=== PATIENT | male | born 1945 | race Caucasian/White ===

== ENCOUNTER 2016-11-03 11:39 | Emergency (ER) | END 2016-11-03 12:38 | disposition home or self-care (01) | DX: J02.9 Acute pharyngitis, unspecified (principal) ==

== ENCOUNTER 2016-11-14 21:17 | Emergency (ER) | payer BC ==
[~2016-11-14] VITALS: Ht 170.2 cm; Wt 85.0 kg
[~2016-11-14 21:17] MED LIST: ACET500C5 PO; AMO500 PO
[2016-11-14 21:23] VITALS: Ht 170.2 cm; Wt 85.0 kg
[2016-11-14] MEDS ORDERED: KETOROLAC 15 MG INJ IM STA (21:59)
--- NOTE | 2016-11-14 21:59 | ERD ---
ER Documentation Chief Complaint Date/Time DATE: 11/14/16 TIME: 21:57 Chief Complaint c/o rectal pain and bleeding d/t hemorrhoids. No relief with cream. HPI This pleasant 71-year-old male patient presents to emergency department today for treatment of hemorrhoid pain , patient reports pain with walking and sitting , pt reports symptoms x 5 days and has tried Prep H, and Motrin with little relief of symptoms. Patient reports that he has seen blood on the toilet paper with wiping after bowel movements. Patient has past medical history of hemorrhoids last treated a year ago. Patient denies constipation abdominal pain. ROS All systems reviewed and are negative except as per history of present illness. Medications Home Meds Active Scripts Acetaminophen* (Tylophen*) 500 Mg Capsule, 1 CAP PO Q6H Y for PAIN AND OR ELEVATED TEMP, #15 CAP Prov:JEISON DE LOS SANTOS MD 11/03/16 Amoxicillin* (Amoxicillin*) 500 Mg Cap, 500 MG PO TID for 10 Days, CAP Prov:JEISON DE LOS SANTOS MD 11/03/16 Allergies Allergies: Coded Allergies: No Known Allergy (Unverified , 11/14/16) PMhx/Soc Medical and Surgical Hx: pt denies Medical Hx, pt denies Surgical Hx History of Surgery: No Anesthesia Reaction: No Hx Neurological Disorder: No Hx Respiratory Disorders: No Hx Cardiac Disorders: No Hx Psychiatric Problems: No Hx Miscellaneous Medical Probl: No Hx Alcohol Use: No Hx Substance Use: No Hx Tobacco Use: No Smoking Status: Never smoker Physical Exam Vitals Vital Signs Date Time Temp Pulse Resp B/P Pulse Ox O2 Delivery O2 Flow Rate FiO2 11/14/16 21:23 98.4 97 20 196/84 98 Vitals stable, triage notes reviewed Physical Exam Const: Well-appearing well-nourished well-hydrated no distress Head: Atraumatic Eyes: Normal Conjunctiva, PERRLA, EOMI ENT: Normal External Ears, Nose and Mouth. Mucous membranes moist Neck: Full range of motion..~ Resp: Respirations even and unlabored, no respiratory distress Cardio: Abd: Soft, non tender, non distended. Rectal: Deferred Skin: No petechiae or rashes Back: No midline or flank tenderness Ext: No cyanosis, or edema Neur: Awake and alert Psych: Normal Mood and Affect Results 24 hrs Current Medications Medications (Trade) Dose Ordered Sig/Peter Route PRN Reason Start Time Stop Time Status Last Admin Dose Admin Ketorolac Tromethamine (Toradol) 15 mg ONCE STAT IM 11/14/16 21:59 11/14/16 22:01 DC Departure Diagnosis: Primary Impression: Hemorrhoid Hemorrhoid type: unspecified Qualified Code: K64.9 - Hemorrhoids, unspecified hemorrhoid type Condition: Good Patient Instructions: Hemorrhoids Additional Instructions: Thank you for for coming to [facility] for your care today. Please ask your nurse or provider if you have questions about your care today and do not leave until all your questions have been answered. Please use any medications given as directed and follow-up with your doctor (or the doctor you were referred to) in the next 2-3 days. If you do not have a primary care doctor you may follow up at the [facility] (listed below). You may also use motrin and tylenol as needed for fever and/or pain unless instructed otherwise by your provider or nurse. Indications for more urgent follow-up have been discussed, but you may return to the Emergency Department at ANY time for any worrisome or worsening symptoms. If you have abdominal pain, please know that no test or exam you received is perfect and you should follow up within 8 hours for continued pain. If you had any imaging studies today, such as an X-Ray or CT Scan, these studies will be reviewed later by a radiologist. You will be called if there are important findings that were not identified today, so make sure the contact information you provided at registration is correct. If you received any narcotic pain control medicine today, such as Vicodin, Morphine or Dilaudid, your coordination and judgment may be affected for a number of hours. Please do not drive or operate heavy machinery, and you may want someone to assist you at home. If you were given a prescription for narcotic medication, be aware that it is very addictive- use sparingly and only if necessary. ENRIQUE NUNEZ Nov 14, 2016 21:59
[2016-11-14] MEDS ORDERED: NAPR-260 PO (22:16)
[2016-11-14] MEDS ORDERED: HYDR25SU23 PR (22:16)
[2016-11-14] MEDS ORDERED: POLY17PO6 PO (22:17)
== END 2016-11-14 22:26 | disposition home or self-care (01) ==
LOC: FTE 21:17
DX: K64.9 Unspecified hemorrhoids (principal)
CPT/HCPCS: 96372; 99284; J1885